=== PATIENT | male | born 1960 | race Caucasian/White ===

== ENCOUNTER 2024-09-24 12:20 | Emergency (ER) | payer MEDICAID ==
[~2024-09-24] VITALS: Ht 170.2 cm; Wt 78.0 kg
[~2024-09-24 12:20] MED LIST: AMLO10TA80 PO; HYDR25TA PO
[2024-09-24 12:26] VITALS: O2SAT 100
[2024-09-24 13:12] LABS: BASOPHILS % 0.4 % (0.0-2.0); EOSINOPHILS % 0.8 % (0.0-5.0); HEMATOCRIT. 41.4 % (42.0-52.0); HEMOGLOBIN. 13.4 g/dL (14.0-18.0); LYMPHOCYTES % 36.3 % (20.0-50.0); MEAN PLATELET VOLUME 7.9 fl (7.4-10.4); MONOCYTES % 5.9 % (2.0-8.0); NEUTROPHILS % 56.6 % (40.0-76.0); PLATELET 313 x1000/uL (130-400); RED BLOOD CELL COUNT 4.70 mill/uL (4.7-6.1); RED CELL DISTRIBUTION WIDTH 15.4 % (11.6-14.6)
[2024-09-24 13:16] LABS: CREATININE 0.9 mg/dL (0.6-1.3); UREA NITROGEN BLOOD 10 mg/dL (9-23)
[2024-09-24] MEDS: METHOCARBAMOL 500MG TABLET PO ONE (13:30)
[2024-09-24] MEDS: KETOROLAC 30MG/ML VIAL IM ONE (13:30)
[2024-09-24] MEDS ORDERED: METH-653 MT (13:35)
[2024-09-24] MEDS ORDERED: LIDO700A30 TP (13:35)
[2024-09-24] MEDS ORDERED: IBUP-2029 MT (13:35)
[2024-09-24 13:54] VITALS: BP 170/88; PULSE 82; RESP 14; TEMP 36.8; O2SAT 100
== END 2024-09-24 13:57 | disposition home or self-care (01) ==
LOC: ER 12:20
DX: M54.31 Sciatica, right side (principal); E11.9 Type 2 diabetes mellitus without complications; I10 Essential (primary) hypertension; Z79.899 Other long term (current) drug therapy
CPT/HCPCS: 99285; 93971; 80048; 85025; 36415; 72100; 96372; J1885